=== PATIENT | female | born 1980 | race Caucasian/White ===

== ENCOUNTER 2024-08-07 15:34 | Outpatient (AMB) | payer BC, SELFPAY ==
--- OUTSIDE RECORDS SUMMARY | 2024-08-07 15:37 | XMS_ITS | Encounter Summary ---
Author Organization [facility] Address [address] [place] [address] Care Team Providers Care Social Work Faculty Member Name Role Phone Jg Hernandez MD Primary Care Provider Unavail able Juan Vázquez MD Primary Care Provider Unava ilable Stu Freitas DO Primary Care Provider Unavaila ble Encounter Details Date Type Department Care Team Description 02/28/2013 Release of Information Medical Records [address] [place] [address] Abstract, Provider Social History Tobacco Use Types Packs/Day Years Used Date Smoking Tobacco: Never Alcohol Use Standard Drinks/Week Comments Yes 0 (1 standard drink = 0.6 oz pur e alcohol) rare Sex Assigned at Date Recorded Not on file Job Start Date Occupation Industry Not on file Not on file Not on file documented as of this encounter Plan of Treatment Not on file documented as of this encounter Visit Diagnoses Not on filedocumented in this encounter Care Teams Social Work Faculty Member Relationship Specialty Start Date End Date Jg Hernandez MD PCP - General Internal Medicine 02/10/13 07/12/19 Juan Vázquez MD PCP - General Internal Medicine 07/13/19 06/22/21 Stu Freitas DO PCP - General Internal Medicine 06/23/21 documented as of this encounter
--- OUTSIDE RECORDS SUMMARY | 2024-08-07 15:37 | XMS_ITS | Encounter Summary ---
Author Organization [facility] Address [address] [place] [address] Care Team Providers Care Transitional Living Specialist Name Role Phone Stu Freitas DO Primary Care Provider Tka ble Encounter Details Date Type Department Care Team Description 08/04/2023 Account Contact Associate Report Medical Records [address] [place] [address] Denae Turner MD Social History Tobacco Use Types Packs/Day Years Used Date Smoking Tobacco: Never Smokeless Tobacco: Never Alcohol Use Standard Drinks/Week Comments Yes 0 (1 standard drink = 0.6 oz pur e alcohol) occasionally. Sex Assigned at Date Recorded Not on file Job Start Date Occupation Industry Not on file Not on file Not on file documented as of this encounter Plan of Treatment Not on file documented as of this encounter Visit Diagnoses Not on filedocumented in this encounter Care Teams Transitional Living Specialist Relationship Specialty Start Date End Date Stu Freitas DO PCP - General Internal Medicine 06/23/21 documented as of this encounter
--- OUTSIDE RECORDS SUMMARY | 2024-08-07 15:37 | XMS_ITS | Clinical Summary ---
Author Organization [facility] Address [address] [place] [address] Care Team Providers Care Family Reunification Specialist Name Role Phone Stu Freitas DO Primary Care Provider Unavaila ble Allergies No known active allergies Medications Medication Sig Dispensed Refills Start Date End Date Status Multiple Vitamins-Minerals (MULTIVITAL) TABS Take by mouth. 0 02/24/2013 Act david [place]-3 Fatty Acids (FISH OIL) 1000 MG CAPS Take by mouth. 90 Cap 0 02/24/2013 Active betamethasone valerate (VALISONE) 0.1 % lotion 60 mL 0 02/20/2017 Active Mobile Tar Extract (NEUTROGENA T/GEL) 4 % Shampoo Apply topically. 0 02/20/2017 Active Vit-Fe Fumarate-FA ( VITAMINS OR) Take by mouth. 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 Currently engaged with infertility for IVF Chronic idiopathic urticaria 04/08/2020 Sebopsoriasis 02/20/2017 Hyperlipidemia 03/11/2013 Skin moles 02/24/2013 Overview: [place] Derm IMO update Class 3 severe obesity due t o excess calories with body mass index (BMI) of 40.0 to 44.9 in adult 02/24/2013 Resolved Problems Problem Noted Date Resolved Date Urticaria 04/08/2020 04/08/2020 Immunizations Name Administration Dates Next Due COVID-19 (KRIS Strong) PT REPORTED 09/29/2020 HPV (Gardasil) 03/17/2007,11/08/2006,09/10/2006 Influenza (> 6 Months) 03/10/2017,2015,03/21/2015,2012 Influenza (>6 Months) Split Preservative Free 03/10/2017,03/18/2016,03/21/2015 Influenza Flu (PT Reported) 04/01/2023, Influenza Vaccine-preservati ve Free-quadrivalent 4 Years 03/29/2019 Influenza Vaccine-quadrivale nt 4 Years Plus 03/11/2021,03/15/2020,04/05/2018 Influenza vaccine high dose age 65 and over 03/22/2014,02/24/2013 Tdap 01/05/2019,09/24/2010 Family History Medical History Relation Name Comments No Known Problems Father Thyroid Disorder Maternal Grandmother Hypercholesterolemia Mother Multiple Sclerosis Other great aun t Cancer of the Prostate Paternal Grandfather Multiple Sclerosis Sister CA Breast Negative Hx CAD Negative Hx Diabetes Negative Hx Hypertension Negative Hx Relation Name Status Comments Father Alive Maternal Grandfather Maternal Grandmother Alive Mother Alive Other Paternal Grandfather Paternal Grandmother Sister Social History Tobacco Use Types Packs/Day Years Used Date Smoking Tobacco: Never Smokeless Tobacco: Never Tobacco Cessation:Counseling Given: Not Answered Alcohol Use Standard Drinks/Week Comments Yes 0 (1 standard drink = 0.6 oz pur e alcohol) occasionally. Sex Assigned at Date Recorded Not on file Job Start Date Occupation Industry Not on file Not on file Not on file Last Filed Vital Signs Vital Sign Reading Time Taken Comments Blood Pressure 112/80 06/09/2023 4:24 PM EST Pulse 90 06/09/2023 4:24 PM EST Temperature 36.9 ??C (98.5 ??F) 06/09/2023 4:24 PM ES T Respiratory Rate 18 07/19/2019 3:50 PM EST Oxygen Saturation - - Inhaled Oxygen Concentration - - Weight 105.2 kg (232 lb) 06/09/2023 4:24 PM EST Height 157.5 cm (5' 2 ) 06/09/2023 4:24 PM EST Body Mass Index 42.43 06/09/2023 4:24 PM EST Plan of Treatment Health Maintenance Due Date Last Done Comments Covid-19 Vaccine (2 - 2022-2 4 season) 2024 09/29/2020 INFLUENZA (#1) 2024 04/01/2023, 03/22, 03/11/2021, Additional history exists MAMMOGRAM 03/10/2024 03/10/2023 (Exte rnal Completion), 12/30/2021, 01/04/2018 BMI CHECK/ADVISE 06/21/2024 06/09/2023, 08/2021, 09/15/2021, Additional history exists BASELINE HEALTH EXAM 40-64 06/09/202506/09, 06/09/2023, 09/15/2021, Additional history exists CERVICAL CANCER SCREENING 03/10/20262022 (External Completion), 12/19/2012 (External Completion of test per patient (Patient reports normal results)) CHOLESTEROL SCREENING 06/09/2028 06/09/2023 , 09/15/2021, 07/19/2019, Additional history exists DTAP/TDAP/TD (3 - Td or Tdap) 01/05/2029 01/05/2019, 09/24/2010 PNEUMOCOCCAL VACCINE FOR HIG H RISK PATIENTS (#1) 2046 Care Teams Family Reunification Specialist Relationship Specialty Start Date End Date Stu Freitas DO PCP - General Internal Medicine 06/23/21
--- OUTSIDE RECORDS SUMMARY | 2024-08-07 15:37 | XMS_ITS | Patient Health Record ---
Author Organization [facility] Address [address] [place] [address] Care Team Providers Care Wastewater Process Engineer Name Role Phone Shanita CANDELARIO MD, CARLOS Primary Care Provider Unavailab Eunice Villarreal Unavailable [phone] Allergies No Known Allergies Results Component Value Reference Range Notes [id number] IGP No Culture 30 Plus Reviewed date:02/23/2024 01:38:28 PM Interpretation: Performing Lab:[facility], [address], [place], Phone - [phone], Director - [facility] Notes/Report: Clinical Information:[id number] LMP / Prev Treat...[id number] Dates / Results....01/19/22 NIL, Neg HPV No. of containers..01 ThinPrep Vial DIAGNOSIS: NEGATIVE FOR INTRAEPITHELIAL LESION OR MALIGNANCY. THIS SPECIMEN WAS RESCREENED PART OF OUR WIRE WINDER PROGRAM. Specimen adequacy: Satisfactory for evaluation. Endocervical and/or squamous metaplastic cells (endocervical component) are present. Clinician provided ICD10: Z0 1.419 Performed by: Shannen teran, Junior Systems Administrator (ASCP) QC reviewed by: Edwin dc, Junior Systems Administrator (ASCP) . . Note: The Pap smear is a screening test designed to aid in the detection of premalignant and malignant conditions of the uterine cervix. It is not a diagnostic procedure and should not be used as the sole means of detecting cervical cancer. Both false-positive and false-negative reports do occur. . Test Methodology: This liquid based ThinPrep(R) pap test was screened with the use of an image guided system. HPV Aptima Negative Negative This nucleic acid amplification test detects fourteen high-risk HPV types (16,18,31,33,35,39,45,51,52,56,58 ,59,66,68) without differentiation. HPV Genotype Reflex Criteria not met, HPV Genotype not performed. Urinalysis Reviewed date:02/16/2024 03:32:26 PM Interpretation: Performing Lab: Notes/Report: PH 5.0 PROTEIN Neg GLUCOSE Neg BLOOD Neg PDF Report Reviewed date:02/23/2024 01:38:11 PM Interpretation: Performing Lab:[facility] [place], [address], [address], [place], Phone - [phone], Director - [facility] Notes/Report: Clinical Information:[id number] LMP / Prev Treat...[id number] Dates / Results....01/19/22 NIL, Neg HPV No. of containers..01 ThinPrep Vial Reason For Referral No Information Medications Medication SIG (Take, Route, Frequency, Duration) Notes Start Date End Date Status CoQ-10 100 MG as directed Orally Unknown Dose Active Multivitamin-Ultra Active DHEA 25 MG as directed Orally Unknown Dose Active Immunizations Vaccine Route Administration Date Status Comme nts Influenza, live, intranasal Intramuscular 08/12/2011 Pendi ng Tdap Intramuscular 08/12/2011 Pending Tdap Unknown 12/27/2012 Pending Social History Tobacco Use: Social History Observation Description Date Details (start date - stop date) Never Smoker NA - NA Sexual History Question Answer Notes Had sex in the past 12 months (vaginal, oral, or anal)? Yes with Men only Prevention strategies discussed: Other AUDIT-C (Standard) Question Answer Notes Did you have a drink contain ing alcohol in the past year? Yes How often did you have six o r more drinks on one occasion in the past year? Never (0 point) How many drinks did you have on a typical day when you were drinking in the past year? 1 or 2 drinks (0 point) How often did you have a dri nk containing alcohol in the past year? 2 to 4 times a month (2 points) Points 2 Interpretation Negative Tobacco Control (Standard) Question Answer Notes Tobacco use: Nonsmoker Section Notes: Problems Problem Type SNOMED Code ICD Code Onset Dates Problem Status W/U Status Risk Notes Problem Morbid obesity (disorder) (200090286) Morbid (severe) obesity due to excess calories (E66.01) Active confirmed Problem Amenorrhea (33305411) Amenorrhea, unspecified (N91.2) Active confirmed Problem Irregular Menstruation (59595474) Other specified irregular menstruation (N92.5) Active confirmed Problem Abnormal vaginal bleeding (517282157) Other specified abnormal uterine and vaginal bleeding (N93.8) Active confirmed Problem Female infertility associated with anovulation (821661371) Female infertility associated with anovulation (N97.0) Active confirmed Problem Female infertility (5794754) Female infertility, unspecified (N97.9) Active confirmed Problem Obesity (387795464) Obesity, unspecified (278.00) Active confirmed Major Vital Signs Temperature 97.7 degrees Fahrenheit 02/16/2024 Blood pressure diastolic 84 mm Hg 02/16/2024 Height 62 in 02/16/2024 Blood pressure systolic 128 mm Hg 02/16/2024 Weight 240 lbs 02/16/2024 BMI 43.89 kg/m2 02/16/2024 Encounters Encounter Location Date Provider Diagnosis [address] [address] 02/16/2024 Eunice Stone Encounter for gynecological examination (general) (routine) without abnormal findings Z01.419 ; Encounter for screening mammogram for malignant neoplasm of breast Z12.31 and Female infertility, unspecified N97.9 Assessments Encounter Date Diagnosis (ICD Code) Assessment Notes Treatment Notes Treatment Clinical Notes Section Notes 02/16/2024 Encounter for gynecological examination (general) (routine) without abnormal findings (ICD-10 - Z01.419) PAP TEST WITH HPV TYPING WAS OBTAINED. 02/16/2024 Encounter for screening mammogram for malignant neoplasm of breast (ICD-10 - Z12.31) REGULAR MAMMOGRAMS AND SBE'S WERE RECOMMENDED. 02/16/2024 Female infertility, unspecified (ICD-10 - N97.9) CONTINUE CARE WITH [facility]. Plan Of Treatment Pending Test Test Name Order Date Test, Urine 02/12/2023 Test, Urine 06/17/2023 DIAGNOSTIC MAMMOGRAM, BILATERAL 12/24/19 18 COMPLETE BLOOD COUNT 06/17/2023 HCG PLUS BETA 06/17/2023 THIN PREP,HPV,ALISIA IF HPV+/CYT-,CT/GC(>2 9YR)(SCRN) 01/03/2018 MM Digital Mammo Screening 01/28/2022 MM Digital Mammo Screening 02/12/2023 MM Digital Mammo Screening 02/16/2024 Left Breast Ultrasound 12/23/2017 Next Appt Details Provider Name:Eunice walter, 02/21/2025 03:00:00 PM, [address], [address], [place], [address], Insurance Providers Payer Name Payer Address Payer Phone Subscriber Number Group Number Insured Name Patient Relationship to Insured Coverage Start Date Coverage End Date [employer] [place] [address] [place] [address] [phone] [id number] ESTIVEN PERRY Self - patient is the insured Medical (General) History Medical History History ICD Code Other obesity E66.8 Mastodynia N64.4 Other specified irregular menstruation N 92.5 Other specified abnormal uterine and vag inal bleeding N93.8 Inflammatory disease of cervix uteri N72 Other acute postprocedural pain G89.18 Morbid (severe) obesity due to excess ca lories E66.01 Female infertility associated with anovu lation N97.0 Other acute postprocedural pain G89.18 Surgical History Surgery Date(Month/Year)
--- OUTSIDE RECORDS SUMMARY | 2024-08-07 15:37 | XMS_ITS ---
Author Organization [facility] Address [address] [place] [address] Care Team Providers Care Rod Buster Name Role Phone Shanita CANDELARIO MD, CARLOS Primary Care Provider Unavailab Eunice Villarreal Unavailable [phone] Allergies No Known Allergies Results Component Value Reference Range Notes Urinalysis Reviewed date:02/16/2024 03:32:26 PM Interpretation: Performing Lab: Notes/Report: PH 5.0 PROTEIN Neg GLUCOSE Neg BLOOD Neg [id number] IGP No Culture 30 Plus Reviewed date:02/23/2024 01:38:28 PM Interpretation: Performing Lab:[facility], [address], [address], [place], Phone - [phone], Director - [facility] Notes/Report: Clinical Information:[id number] LMP / Prev Treat...FOE=[id number] Dates / Results....01/19/22 NIL, Neg HPV No. of containers..01 ThinPrep Vial DIAGNOSIS: NEGATIVE FOR INTRAEPITHELIAL LESION OR MALIGNANCY. THIS SPECIMEN WAS RESCREENED PART OF OUR FAMILY SERVICE CASEWORKER PROGRAM. Specimen adequacy: Satisfactory for evaluation. Endocervical and/or squamous metaplastic cells (endocervical component) are present. Clinician provided ICD10: Z0 1.419 Performed by: Shannen teran, Dry Starch Operator (ASCP) QC reviewed by: Edwin dc, Dry Starch Operator (ASCP) . . Note: The Pap smear [...] Criteria not met, HPV Genotype not performed. PDF Report Reviewed date:02/23/2024 01:38:11 PM Interpretation: Performing Lab:[facility], [address], [address], [place], Phone - [phone], Director - [facility] Notes/Report: Clinical Information:[id number] LMP / Prev Treat...MLF=[id number] Dates / Results....01/19/22 NIL, Neg HPV No. of containers..01 ThinPrep Vial REASON FOR VISIT Annual X RAY NURSE Physical, Annual X RAY NURSE Physical 40-49 Medications Medication SIG (Take, Route, Frequency, Duration) Notes Start Date End Date Status Multivitamin-Ultra Active DHEA 25 MG as directed Orally Unknown Dose Active CoQ-10 100 MG as directed Orally Unknown Dose Active Social History Tobacco Use: Social History Observation [...] (Standard) Question Answer Notes Tobacco use: Nonsmoker Problems Problem Type SNOMED Code ICD Code Onset Dates Problem Status W/U Status Risk Notes Problem Female infertility (1684290) Female infertility, unspecified (N97.9) Active confirmed Vital Signs Temperature 97.7 degrees Fahrenheit 02/16/20 24 Blood pressure systolic 128 mm Hg 02/16/20 24 Blood pressure diastolic 84 mm Hg 024 Height 62 in 02/16/2024 Weight 240 lbs 02/16/2024 BMI 43.89 kg/m2 02/16/2024 Encounters Encounter Location Date Provider Diagnosis Total [facility] [address] [place] [address] 02/16/2024 Eunice Stone Encounter for gynecological examination [...] unspecified (ICD-10 - N97.9) CONTINUE CARE WITH [facility]. Plan Of Treatment Treatment Notes Assessment Notes Encounter for gynecological examination (general) (routine) without abnormal findings PAP TEST WITH HPV TYPING WAS OBTAINED. Encounter for screening mamm ogram for malignant neoplasm of breast REGULAR MAMMOGRAMS AND SBE'S WERE RECOMMENDED. Female infertility, unspecified CONTINUE CARE WITH [facility]. Pending Test Test Name Order Date MM Digital Mammo Screening 02/16/2024 Next Appt Details Follow Up: 1 Year, Reason: Provider Name:Eunice walter, 02/21/2025 03:00:00 PM, [address], [address], [place], [address], Progress Notes * ESTIVEN PERRYDOB:1980 (43 yo F)Acc No.[id number]:02/16/2024 PROGRESS NOTES Patient:?ESTIVEN PERRY Appointment Provider:?Eunice walter M.D. :1980???Age:43 Y???Sex:Female D ate:02/16/2024 Address:[address] [place], [place] [id number] Pcp:CARLOS CANDELARIO MD Subjective: * Chief Complaints: * ???Annual X RAY NURSE PhysicalAnnual X RAY NURSE Physical 40-49 * HPI: ???New/Follow-up Patient Consult:? ADELFO WAS SEEING [facility] [place] [facility] AND WAS AN IVF PATIENT WHEN THIS WAS TURNED OVER TO [facility].? SHE HAD TO REPEAT MOST OF HER INFERTILITY WORK UP.? SHE IS NOW SEEING DR SONU BANSAL OF [facility] AND TREATMENTS HAVE BEEN STARTED. HER LAST MAMMOGRAM DONE IN JAN 2023 SHOWED BREASTS ARE NOT DENSE AND WAS NORMAL. HER LAST PAP TEST IN 2021 WAS NEGATIVE AND HPV NEGATIVE. PFIZER X 3. ???Annual:? Patient presents for annual exam, ages 40-49. ?General Health Maintenance:?Current breast complaints:?no breast pain, mass, discharge, or skin changes ?Urinary problems:?patient reports no urinary health problems or bowel health problems ?Calcium intake:?takes adequate calcium via diet and supplementation ?Significant X RAY NURSE problems:?no significant electrophysiology technologist symptoms or problems * ROS:?general:?no?chest pain.?no?palpitations.?no?headache.?no?cough.?no?shortness of breath.?no?fever.?no?unexplained weight loss.?no?nausea/vomiting.?no?change in bowel movements.?no blood in stool.?no?genitourinary complaints.?no?skin complaints.? * Medical History:? * Chief Electrician History:?/ Para?0/0.?Sexual activity?currently sexually active.?Last Pap Smear:?01/28/22 NIL, NEG HPV, 01/06/19 NIL, Neg HPV, 01/03/18 No Interpretation Possible, NEG HRHPV, 07/2015 , neg, NEG HRHPV.?Mammogram:?02/18/23 < 50% density, 12/30/21 Lanette Medina, 01/04/18 Baseline, < 50% density.?LMP and menses?01/30/24.? Control:?None, Trying for .? * OB History:?Total pregnancies?0.? * Surgical History:?Denies Pas t Surgical History * Hospitalization/Major Diagno stic Procedure:?Denies Past Hospitalization * Family History:?Mother: arelis xie, well.?Father: alive, well.? Sibling(s): 4 sister(s) MS Family History: prostate cancer. * Social History:?Tobacco Use:?Tobacco Control (Standard)?Tobacco use:?Nonsmoker ???Sexual History:?Sexual History?Had sex in the past 12 months (vaginal, oral, or anal)??Yes ?with?Men only ?Prevention strategies discussed:?Other ?Details of Sexual History?Are you sexually active??Yes ???Drugs/Alcohol:?Drugs?Have you used drugs other than those for medical reasons in the past 12 months??No ???Miscellaneous:?Children: no. ?Domestic violence: no. ?Exercise: yes, Cardio. ?Home smoke detector use: yes. ?Living with: spouse. ?Marital status: . ?Natural support system: yes. 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 ?Sexual abuse: no. ?Sexually active: yes. ?Verbal abuse: no. ???Drug/Alcohol:?AUDIT-C (Standard)?Did you have a drink containing alcohol in the past year??Yes ?How often did you have six or more drinks on one occasion in the past year??Never (0 point) ?How many drinks did you have on a typical day when you were drinking in the past year??1 or 2 drinks (0 point) ?How often did you have a drink containing alcohol in the past year??2 to 4 times a month (2 points) ?Points?2 ?Interpretation?Negative * Medications:?TakingDHEA 25 M G Tablet as directed Orally , Notes to Pharmacist: Unknown DoseCoQ-10 100 MG Capsule as directed Orally , Notes to Pharmacist: Unknown DosePrenatal Multivitamin-Ultra Taking DHEA 25 MG Tablet as directed Orally , Notes to Pharmacist: Unknown DoseTaking CoQ-10 100 MG Capsule as directed Orally , Notes to Pharmacist: Unknown DoseTaking Multivitamin-Ultra Discontinuediron 1 tab Oral Apri 0.15-30 MG-MCG Tablet TAKE 1 TABLET BY MOUTH EVERY DAY (TAKE 21 DAY ACTIVE TABLETS THEN SKIP PLACEBOS & START NEXT PACK) Oral Aygestin 5 MG Tablet 1 tablet Orally q 4hrs-d1, v8ynp-s2, i1jeq-v6, then twice a day for 14 days Medication List reviewed and reconciled with the patientDiscontinued iron 1 tab Oral Discontinued Apri 0.15-30 MG-MCG Tablet TAKE 1 TABLET BY MOUTH EVERY DAY (TAKE 21 DAY ACTIVE TABLETS THEN SKIP PLACEBOS & START NEXT PACK) Oral Discontinued Aygestin 5 MG Tablet 1 tablet Orally q 4hrs-d1, n2maa-i9, g9ghg-n0, then twice a day for 14 days Medication List reviewed and reconciled with the patient * Allergies:?N.K.D.A.no[Allerg ies Verified] Objective: * Vitals:?Ht: 62 in, Wt:240lbs , BMI:43.89Index, BP:128/84mm Hg, Temp:97.7F. * Examination: ???General Exam: ?CONSTITUTIONAL:?NECK/THYROID:?RESPIRATORY:?Auscultation: clear to auscultation bilaterally, Respiratory Effort: normal.?CARDIOVASCULAR:?Auscultation: regular rate and rhythm.?BREAST, Right:?BREAST, Left:?GASTROINTESTINAL:?MUSCULOSKELETAL:?SKIN:?NEURO/PSYCH:?Genitourinary: ?EXTERNAL GENITALIA:?VAGINA:?BLADDER:?URETHRA:?CERVIX:?UTERUS:?ADNEXA:?ANUS AND PERINEUM:? Assessment: * Assessment: 1.?Encounter for gynecologic al examination (general) (routine) without abnormal findings - Z01.419???2.?Encounter for screening mammogram for malignant neoplasm of breast - Z12.31???3.?Female infertility, unspecified - N97.9??? Plan: * Treatment: ?LAB: Urinalysis (Collection Date & Time - 02/16/2024)* ? Value Reference Range ?PH 5.0 * ?PROTEIN Neg * ?GLUCOSE Neg * ?BLOOD Neg * DASIM Ware 02/16/2024 03:28:30 PM EDT > Notes: PAP TEST WITH HPV TYPING WAS OBTAINED.??2.?Encounter for screening mammogram for malignant neoplasm of breast?Imaging: MM Digital Mammo Screening Notes: REGULAR MAMMOGRAMS AND SBE'S WERE RECOMMENDED.??3.?Female infertility, unspecified? Notes: CONTINUE CARE WITH [facility].?? * Procedure Codes:? * Preventive Medicine:? ??YOUR PREVENTIVE WELLNESS PLAN:?Osteoporosis prevention?Calcium, D, strength training.?Breast Cancer Screening (Mammogram):?annually.?Cervical Cancer Screening (Pap Smear):?q 3 years with HPV screen.?Colorectal Cancer Screening:?q 10 years.? * Follow Up:?1 Year * Images: Billing Information: * Visit Code:? 30377 Preventive Care New Pt. Age 40-64. 43266 Preventive Care Est Pt. Age 40-64. * Procedure Codes:? * Sign off status: Completed true * Appointment Provider:?Eunice Stone M.D. Date:?02/16/2024 Generated for Yosef marcos/Lane/eTnimoitting on:?08/07/2024 03:37 PM EST History and Physical Notes * HPI (History of Present Illness) Category Sub-Category Detail Notes Category Not es New/Follow-up Patient Consult PAT WAS SEEING [facility] [facility] [place] AND WAS AN IVF PATIENT WHEN THIS WAS TURNED OVER TO [facility]. SHE HAD TO REPEAT MOST OF HER INFERTILITY WORK UP. SHE IS NOW SEEING DR SONU [facility]ANS[facility] OF [facility] AND TREATMENTS HAVE BEEN STARTED. HER LAST MAMMOGRAM DONE IN JAN 2023 SHOWED BREASTS ARE NOT DENSE AND WAS NORMAL. HER LAST PAP TEST IN 2021 WAS NEGATIVE AND HPV NEGATIVE. PFIZER X 3. Annual General Health Maintenance: Current breast complaints:: no breast pain, mass, discharge, or skin changes Urinary problems:: patient r eports no urinary health problems or bowel health problems Calcium intake:: takes adequ ate calcium via diet and supplementation Significant X RAY NURSE problems:: n o significant electrophysiology technologist symptoms or problems Examination Category Sub-Category Detail Notes Category Not es General Exam CONSTITUTIONAL: General Appearan ce:: alert, in no acute distress, normal, well nourished NECK/THYROID: Thyroid:: normal size and shape Inspection/Palpation:: normal RESPIRATORY: Auscultation: clear to auscultation bilaterally, Respiratory Effort: normal CARDIOVASCULAR: Auscultation: regula r rate and rhythm GASTROINTESTINAL: Hernias:: no hernias present, no inguinal adenopathy Liver and Spleen:: normal Abdomen:: no masses, nontender, nondiste nded MUSCULOSKELETAL: Inspection/Palpation:: no clubb ing, cyanosis, or edema SKIN: Skin:: normal NEURO/PSYCH: Mood/Affect:: normal Orientation:: time , place, person BREAST, Right: Inspection/Palpation :: no discharge, no masses present, no nipple retraction, no skin changes, no skin dimpling, no tenderness, no lymphadenopathy, no axillary mass, no axillary tenderness BREAST, Left: Inspection/Palpation :: no discharge, no masses present, no nipple retraction, no skin changes, no skin dimpling, no tenderness, no lymphadenopathy, no axillary mass, no axillary tenderness Genitourinary EXTERNAL GENITALIA: External Genitalia:: nor mal, no lesions VAGINA: Vagina:: normal appearance, no a bnormal discharge, no lesions BLADDER: Bladder:: no mass, nontender URETHRA: Urethra:: no erythema or lesions present CERVIX: Cervix:: no lesions, nontender UTERUS: Uterus:: nontender, normal conto ur, normal mobility, normal size ADNEXA: Adnexa:: no masses, no tendernes s ANUS AND PERINEUM: Anus/Perineum:: visually norm al
--- OUTSIDE RECORDS SUMMARY | 2024-08-07 15:37 | XMS_ITS | Encounter Summary ---
Author Organization [facility] Address [address] [place] [address] Care Team Providers Care Hospice Chaplain Name Role Phone Stu Freitas DO Primary Care Provider Alisa grullon Encounter Details Date Type Department Care Team Description 12/25/2022 Pt. Referral Request [facility] [address] [place] [address] Md Linda Social History Tobacco Use Types Packs/Day Years [...] on filedocumented in this encounter Care Teams Hospice Chaplain Relationship Specialty Start Date End Date Stu Freitas DO PCP - General Internal Medicine 06/23/21 documented as of this encounter
--- OUTSIDE RECORDS SUMMARY | 2024-08-07 15:37 | XMS_ITS | Encounter Summary ---
Author Organization [facility] Address [address] [place] [address] Care Team Providers Care Truck Unloader Name Role Phone Jg Hernandez MD Primary Care Provider Unavail able Juan Vázquez MD Primary Care Provider Unava ilable Stu Freitas DO Primary Care Provider Unavaila ble Encounter Details Date Type Department Care Team Description 02/10/2017 Manufacturing Engineer Assembly Report Medical Records [address] [place] [address] Darío Sparks MD Social History Tobacco Use Types Packs/Day [...] on filedocumented in this encounter Care Teams Truck Unloader Relationship Specialty Start Date End Date Jg Hernandez MD PCP - General Internal Medicine 02/10/13 07/12/19 Juan Vázquez MD PCP - General Internal Medicine 07/13/19 06/22/21 Stu Freitas DO PCP - General Internal Medicine 06/23/21 documented as of this encounter
--- OUTSIDE RECORDS SUMMARY | 2024-08-07 15:37 | XMS_ITS | Encounter Summary ---
Author Organization [facility] Address [address] [place] [address] Care Team Providers Care Electronic Component Processor Name Role Phone Juan Vázquez MD Primary Care Provider Unava ilStu Saucedo DO Primary Care Provider Tka ble Encounter Details Date Type Department Care Team Description 07/21/2019 Release of Information Medical Records [address] [place] [id number] Abstract, Provider Social History Tobacco Use Types [...] on filedocumented in this encounter Care Teams Electronic Component Processor Relationship Specialty Start Date End Date Juan Vázquez MD PCP - General Internal Medicine 07/13/19 06/22/21 Stu Freitas DO PCP - General Internal Medicine 06/23/21 documented as of this encounter
--- OUTSIDE RECORDS SUMMARY | 2024-08-07 15:37 | XMS_ITS ---
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 Name Role Phone Shanita CANDELARIO MD, CARLOS Primary Care Provider Eunice Crawley Unavailable [phone] Allergies No Known Allergies REASON FOR VISIT heavy bleeding over 1 1/2 wks with clots Medications Medication SIG (Take, Route, Frequency, Duration) Notes Start Date End Date Status Apri 0.15-30 MG-MCG TAKE 1 TABLET BY BRENT TH EVERY DAY (TAKE 21 DAY ACTIVE TABLETS THEN SKIP PLACEBOS & START NEXT PACK) Oral for 21 Active Multivitamin-Ultra Active DHEA 25 MG as directed Orally Unknown Dose Active CoQ-10 100 MG as directed Orally Unknown Dose Active Aygestin 5 MG 1 tablet Orally q 4hrs-d1, n6eud-s1, h0muq-u6, then twice a day for 14 days for 30 days 06/17/2023 Active iron 1 tab Oral for 14 days Active Social History Tobacco Use: Social History Observation Description Date Details (start date - stop date) Never Smoker NA - NA Tobacco Use/Smoking Question Answer Notes Are you a nonsmoker Alcohol Screen (Audit-C) Question Answer Notes Did you have a drink contain ing alcohol in the past year? Yes How often did you have a dri nk containing alcohol in the past year? 2 to 4 times a month (2 points) How many drinks did you have on a typical day when you were drinking in the past year? 1 or 2 drinks (0 point) Points 2 Interpretation Negative Sexual History Question Answer Notes Had sex in the past 12 months (vaginal, oral, or anal)? Yes with Men only Prevention strategies discussed: Other Section Notes: Vital Signs Height 62 in 06/17/2023 Weight 236 lbs 06/17/2023 BMI 43.16 kg/m2 06/17/2023 Blood pressure systolic 124 mm Hg 06/17/20 Blood pressure diastolic 86 mm Hg 023 Temperature 97.1 degrees Fahrenheit 06/17/20 BP RETAKEN 06/17/23 2:25PM: 130/82 Encounters Encounter Location Date Provider Diagnosis [facility] [address] [place] [address] 06/17/2023 Eunice Richardsonva Other specified abnormal uterine and vaginal bleeding N93.8 Assessments Encounter Date Diagnosis (ICD Code) Assessment Notes Treatment Notes Treatment Clinical Notes Section Notes 06/17/2023 Other specified abnormal uterine and vaginal bleeding (ICD-10 - N93.8) DISCUSSED COMMON CAUSES OF AUB. RECOMMENDED SHE GET IN TOUCH WITH DR GARZON WHO IS MANAGING HER INFERTILITY EVALUATION AND TX. IF HER BLEEDING DOES NOT SUBSIDE AND SHE STARTS BLEEDING HEAVILY AGAIN AND SHE IS NOT ABLE TO CONTACT DR GARZON, CONSIDER AYGESTIN TAPER. DETAILED INSTRUCTIONS AND RX WERE GIVEN. DETAILED INSTRUCTIONS AND RX WERE GIVEN. Plan Of Treatment Medication Medication Name Sig Start Date Stop Date Notes Aygestin 5 MG 1 tablet Orally q 4h rs-d1, y6ovt-t4, p8nnb-w3, then twice a day for 14 days for 30 days 06/17/2023 Treatment Notes Assessment Notes Other specified abnormal grover rine and vaginal bleeding DISCUSSED COMMON CAUSES OF AUB. RECOMMENDED SHE GET IN TOUCH WITH DR GARZON WHO IS MANAGING HER INFERTILITY EVALUATION AND TX. IF HER BLEEDING DOES NOT SUBSIDE AND SHE STARTS BLEEDING HEAVILY AGAIN AND SHE IS NOT ABLE TO CONTACT DR GARZON, CONSIDER AYGESTIN TAPER. DETAILED INSTRUCTIONS AND RX WERE GIVEN. DETAILED INSTRUCTIONS AND RX WERE GIVEN. Pending Test Test Name Order Date Test, Urine 06/17/2023 COMPLETE BLOOD COUNT 06/17/2023 HCG PLUS BETA 06/17/2023 Next Appt Details Follow Up: 2 Weeks, Reason: Provider Name:Eunice walter, 02/21/2025 03:00:00 PM, [address], [address], [place], [address], Progress Notes * VALDEZ PERRY:1980 (42 yo F)Acc No.[id number]:06/17/2023 PROGRESS NOTES Patient:ESTIVEN GUPTA Appointment Provider:?Eunice walter M.D. :1980???Age:42 Y???Sex:Female D ate:06/17/2023 Address:[address] [place] [address], [place] [address], , [facility] Pcp:OLY RIVERS, DO Subjective: * Chief Complaints: * ???Heavy bleeding over 1 1/2 wks with clots * HPI: ???New/Follow-up Patient Consult:? ADELFO HAS BEEN SEEING [facility]. IVF WAS STARTED IN MAR 2023. SHE DEVELOPED ONLY ONE EGG AND THUS EGG RETRIVAL WAS CANCELLED. SHE HAD IUI INSTEAD ON 04/03/23. SHE DID NOT GET AND HAD A NORMAL PERIOD ON 04/15/23. SHE WAS THEN PLACED ON APRI IN MAR. SHE HAD NORMAL PERIOD IN APR 2023. SHE HAD LIGHT BLEEDING WHILE ON PLACEBO ON 06/03/23 TO 06/09/23. SHE THEN HAD HEAVY BLEEDING FROM 06/11/23 UP TO THE PRESENT TIME. UCG IS NEGATIVE. SHE HAD BEEN PASSING CLOTS. ?ADELFO HAS NO HX OF BLEEDING OR CLOTTING DISORDERS. SHE CONTINUES TO BE FOLLOWED BY INFERTILITY MD AT [facility] (DR GARZON)BUT THEY HAVE CLOSED THE SECTION AND ARE NOW BEING COMBINED WITH [place]F [place]. SHE WILL TRY TO REACH OUT TO DR GARZON. * ROS:?general:?no?chest pain.?no?palpitations.?no?headache.?no?cough.?no?shortness of breath.?no?fever.?no?unexplained weight loss.?no?nausea/vomiting.?no?change in bowel movements.?no blood in stool.?genitourinary complaints?yes,?VAGINAL BLEEDING.?no?skin complaints.? * Medical History:? * Workers Compensation Manager History:?/ Para?0/0.?Sexual activity?currently sexually active.?Last Pap Smear:?01/28/22 NIL, NEG HPV, 01/06/19 NIL, Neg HPV, 01/03/18 No Interpretation Possible, NEG HRHPV, 07/2015 , neg, NEG HRHPV.?Mammogram:?02/18/23 < 50% density, 12/30/21 Lanette [place], 01/04/18 Baseline, < 50% density.?LMP and menses?06/06/23, 10/16/22, Spotting 12/2022 after Medroxyprogesterone.? Control:?none.? * OB History:?Total pregnancies?0.? * Surgical History:?No Surgica l History documented. * Hospitalization/Major Diagno stic Procedure:?Denies Past Hospitalization * Family History:?Mother: arelis e, well.?Father: alive, well.? Sibling(s): 4 sister(s) MS Family History: prostate cancer. * Social History:?Tobacco Use:?Tobacco Use/Smoking?Are you a?nonsmoker ???Sexual History:?Sexual History?Had sex in the past 12 months (vaginal, oral, or anal)??Yes ?with?Men only ?Prevention strategies discussed:?Other ?Details of Sexual History?Are you sexually active??Yes ???Drugs/Alcohol:?Drugs?Have you used drugs other than those for medical reasons in the past 12 months??No ?Alcohol Screen (Audit-C)?Did you have a drink containing alcohol in the past year??Yes ?How often did you have a drink containing alcohol in the past year??2 to 4 times a month (2 points) ?How many drinks did you have on a typical day when you were drinking in the past year??1 or 2 drinks (0 point) ?Points?2 ?Interpretation?Negative ???Miscellaneous:?no Children. ?no Domestic violence. ?Exercise: yes, Cardio. ?Home smoke detector use: yes. ?Living with: significant other. ?Marital status: Engaged. ?Natural support system: yes. 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 ?no Sexual abuse. ?Sexually active: yes. ?no Verbal abuse. * Medications:?Takingiron 1 ta b Oral DHEA 25 MG Tablet as directed Orally , Notes: Unknown DoseCoQ-10 100 MG Capsule as directed Orally , Notes: Unknown DosePrenatal Multivitamin-Ultra Apri 0.15-30 MG-MCG Tablet TAKE 1 TABLET BY MOUTH EVERY DAY (TAKE 21 DAY ACTIVE TABLETS THEN SKIP PLACEBOS & START NEXT PACK) Oral Medication List reviewed and reconciled with the patientTaking iron 1 tab Oral Taking DHEA 25 MG Tablet as directed Orally , Notes: Unknown DoseTaking CoQ-10 100 MG Capsule as directed Orally , Notes: Unknown DoseTaking Multivitamin-Ultra Taking Apri 0.15-30 MG-MCG Tablet TAKE 1 TABLET BY MOUTH EVERY DAY (TAKE 21 DAY ACTIVE TABLETS THEN SKIP PLACEBOS & START NEXT PACK) Oral Medication List reviewed and reconciled with the patient * Allergies:?N.K.D.A.no[Allerg ies Verified] Objective: * Vitals:?Ht: 62 in, Wt:236 lb s, BMI:43.16 Index, BP:124/86 mm Hg, Temp:97.1 F BP RETAKEN 06/17/23 2:25PM: 130/82. * Examination: ???Gynecological: ?EXTERNAL GENITALIA:?Normal female. No lesions, erythema or discharge.?VAGINA:?pink woodson. No discharge or lesions. No cystocele or rectocele.?CERVIX:?No cervical motion tenderness, discharge or lesions, LIGHT BLEEDING PER OS.?UTERUS:? normal size, shape and consistency, normal mobility, nontender.?ADNEXA:?no masses or tenderness bilaterally.? Assessment: * Assessment: 1.?Other specified abnormal uterine and vaginal bleeding - N93.8 (Primary)? Plan: * Treatment: ?LAB: COMPLETE BLOOD COUNT ?LAB: HCG PLUS BETA Notes: DISCUSSED COMMON CAUSES OF AUB. RECOMMENDED SHE GET IN TOUCH WITH DR GARZON WHO IS MANAGING HER INFERTILITY EVALUATION AND TX. IF HER BLEEDING DOES NOT SUBSIDE AND SHE STARTS BLEEDING HEAVILY AGAIN AND SHE IS NOT ABLE TO CONTACT DR GARZON, CONSIDER AYGESTIN TAPER. DETAILED INSTRUCTIONS AND RX WERE GIVEN. DETAILED INSTRUCTIONS AND RX WERE GIVEN.?? * Procedure Codes:? * Follow Up:?2 Weeks * Images: Billing Information: * Visit Code:? * Procedure Codes:? * Sign off status: Completed true * Appointment Provider:?Eunice Stone M.D. Date:?06/17/2023 Generated for Yosef marcos/Lane/eTransmitting on:?08/07/2024 03:36 PM EST History and Physical Notes * HPI (History of Present Illness) Category Sub-Category Detail Notes Category Not es New/Follow-up Patient Consult ADELFO HAS BEEN SEEING [facility]. IVF WAS STARTED IN MAR 2023. SHE DEVELOPED ONLY ONE EGG AND THUS EGG RETRIVAL WAS CANCELLED. SHE HAD IUI INSTEAD ON 04/03/23. SHE DID NOT GET AND HAD A NORMAL PERIOD ON 04/15/23. SHE WAS THEN PLACED ON APRI IN MAR. SHE HAD NORMAL PERIOD IN APR 2023. SHE HAD LIGHT BLEEDING WHILE ON [place] ON 06/03/23 TO 06/09/23. SHE THEN HAD HEAVY BLEEDING FROM 06/11/23 UP TO THE PRESENT TIME. UCG IS NEGATIVE. SHE HAD BEEN PASSING CLOTS. ADELFO HAS NO HX OF BLEEDING OR CLOTTING DISORDERS. SHE CONTINUES TO BE FOLLOWED BY INFERTILITY MD AT [facility] (DR GARZON)BUT THEY HAVE CLOSED THE SECTION AND ARE NOW BEING COMBINED WITH [place]F [place]. SHE WILL TRY TO REACH OUT TO DR GARZON. Examination Category Sub-Category Detail Notes Category Not es Gynecological CERVIX: No cervical antonio on tenderness, discharge or lesions, LIGHT BLEEDING PER OS VAGINA: pink woodson. No disch arge or lesions. No cystocele or rectocele EXTERNAL GENITALIA: Normal female. No le sions, erythema or discharge UTERUS: normal size, shape a nd consistency, normal mobility, nontender ADNEXA: no masses or tendern ess bilaterally
--- OUTSIDE RECORDS SUMMARY | 2024-08-07 15:37 | XMS_ITS ---
Author Organization [facility] Address [address] [place] [id number] Care Team Providers Care Backup Operator Name Role Phone Shanita CANDELARIO MD, CARLOS Primary Care Provider Eunice Crawley Unavailable [phone] Allergies No Known Allergies Results Component Value Reference Range Notes Urinalysis Reviewed date:02/12/2023 03:06:10 PM Interpretation: Performing Lab: Notes/Report: PH 8.0 PROTEIN Neg GLUCOSE Neg BLOOD Neg REASON FOR VISIT Annual ELECTRONIC WARFARE OFFICER Physical, Annual ELECTRONIC WARFARE OFFICER Physical 40-49 Medications Medication SIG (Take, Route, Frequency, Duration) Notes Start Date End Date Status DHEA 25 MG as directed Orally Unknown Dose Active CoQ-10 100 MG as directed Orally Unknown Dose Active Multivitamin-Ultra Active Social History Tobacco Use: Social History [...] only Prevention strategies discussed: Other Section Notes: Problems Problem Type SNOMED Code ICD Code Onset Dates Problem Status W/U Status Risk Notes Problem Amenorrhea (72751528) Amenorrhea, unspecified (N91.2) Active confirmed Problem Female infertility associated with anovulation (189511222) Female infertility associated with anovulation (N97.0) Active confirmed Vital Signs Height 62 in 02/12/2023 Weight 243 lbs 02/12/2023 BMI 44.44 kg/m2 02/12/2023 Blood pressure systolic 130 mm Hg 02/13/20 Blood pressure diastolic 84 mm Hg 023 Temperature 97.7 degrees Fahrenheit 02/13/20 23 Encounters Encounter Location Date Provider Diagnosis [facility] [address] [place] [address] 02/12/2023 Eunice Stone Encounter for gynecological examination (general) (routine) without abnormal findings Z01.419 ; Encounter for screening mammogram for malignant neoplasm of breast Z12.31 and Female infertility associated with anovulation N97.0 Assessments Encounter Date Diagnosis (ICD Code) Assessment Notes Treatment Notes Treatment Clinical Notes Section Notes 02/12/2023 Encounter for gynecological examination (general) (routine) without abnormal findings (ICD-10 - Z01.419) NO PAP TEST, DUE IN 2024. 02/12/2023 Encounter for screening mammogram for malignant neoplasm of breast (ICD-10 - Z12.31) REGULAR MAMMOGRAMS AND SBE'S WERE RECOMMENDED. 02/12/2023 Female infertility associated with anovulation (ICD-10 - N97.0) CONTINUE CARE WITH DR HOWELL. OBTAIN RECORDS FROM HER OFFICE. CONTINUE VITAMINS. Plan Of Treatment Treatment Notes Assessment Notes Encounter for gynecological examination (general) (routine) without abnormal findings NO PAP TEST, DUE IN 2024. Encounter for screening mamm ogram for malignant neoplasm of breast REGULAR MAMMOGRAMS AND SBE'S WERE RECOMMENDED. Female infertility associate d with anovulation CONTINUE CARE WITH DR HOWELL. OBTAIN RECORDS FROM HER OFFICE. CONTINUE VITAMINS. Pending Test Test Name Order Date Test, Urine 02/12/2023 MM Digital Mammo Screening 02/12/2023 Next Appt Details Follow Up: 1 Year, Reason: Provider Name:Eunice walter, 02/21/2025 03:00:00 PM, [address], [place], [address], Progress Notes * VALDEZ LAROSE: 2 (42 yo F)Acc No.[id number]:02/12/2023 PROGRESS NOTES Patient:?ESTIVEN LAROSE Appointment Provider:?Eunice walter M.D. :1980???Age:42 Y???Sex:Female D ate:02/12/2023 Address:[address] [place] [address], [place] [address], , [id number] Pcp:OLY RIVERS, DO Subjective: * Chief Complaints: * ???Annual ELECTRONIC WARFARE OFFICER PhysicalAnnual ELECTRONIC WARFARE OFFICER Physical 40-49 * HPI: ???New/Follow-up Patient Consult:? PAT AND PARTNER ARE GOING TO START IVF TREATMENTS THIS FEB. THEY ARE UNDER THE CARE OF DR GARZON, INFERTILITY SPECIALIST AT [facility] [place] [place]. SHE IS HAPPY WITH CARE. ?PAT AND PARTNER JUST GOT 2 WEEKS AGO. THEY HAVE BEEN TOGETHER FOR YEARS. ?HER LAST MAMMOGRAM DONE IN DECEMBER 2017 SHOWED BREASTS ARE NOT DENSE AND WAS NORMAL. ?HER LAST PAP TEST IN 2021 WAS NEGATIVE AND HPV NEGATIVE. ???Annual:? Patient presents for annual exam, ages 40-49. ?General Health Maintenance:?Current breast complaints:?no breast pain, mass, discharge, or skin changes ?Urinary problems:?patient reports no urinary health problems or bowel health problems ?Calcium intake:?takes adequate calcium via diet and supplementation ?Significant ELECTRONIC WARFARE OFFICER problems:?no significant industrial renderer symptoms or problems * ROS:?general:?no?chest pain.?no?palpitations.?no?headache.?no?cough.?no?shortness of breath.?no?fever.?no?unexplained weight loss.?no?nausea/vomiting.?no?change in bowel movements.?no blood in stool.?no?genitourinary complaints.?no?skin complaints.? * Medical History:? 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 Control:?none.? * OB History:?Total pregnancies?0.? * Surgical History:?Denies [...] ?Sexually active: yes. ?no Verbal abuse. * Medications:?TakingDHEA 25 M G Tablet as directed Orally , Notes: Unknown DoseCoQ-10 100 MG Capsule as directed Orally , Notes: Unknown DosePrenatal Multivitamin- Ultra Medication List reviewed and reconciled with the patientTaking DHEA 25 MG Tablet as directed Orally , Notes: Unknown DoseTaking CoQ-10 100 MG Capsule as directed Orally , Notes: Unknown DoseTaking Multivitamin-Ultra Medication List reviewed and reconciled with the patient * Allergies:?N.K.D.A.no[Allerg ies Verified] Objective: * Vitals:?Ht: 62 in, Wt:243 lb s, BMI:44.44 Index, BP:130/84 mm Hg, Temp:97.7 F. * Examination: ???General Exam: ?CONSTITUTIONAL:?NECK/THYROID:?RESPIRATORY:?Auscultation: clear to auscultation bilaterally, Respiratory Effort: normal.?CARDIOVASCULAR:?Auscultation: regular rate and rhythm.?BREAST, Right:?BREAST, Left:?GASTROINTESTINAL:?MUSCULOSKELETAL:?SKIN:?NEURO/PSYCH:?Genitourinary: ?EXTERNAL GENITALIA:?VAGINA:?BLADDER:?URETHRA:?CERVIX:?UTERUS:?ADNEXA:?ANUS AND PERINEUM:? Assessment: * Assessment: 1.?Encounter for gynecologic al examination (general) (routine) without abnormal findings - Z01.419?2.?Encounter for screening mammogram for malignant neoplasm of breast - Z12.31?3.?Female infertility associated with anovulation - N97.0? Plan: * Treatment: ? Value Reference Range ?PH 8.0 * ?PROTEIN Neg * ?GLUCOSE Neg * ?BLOOD Neg * D.,ASIM 02/12/2023 3:05:54 P M > Notes: NO PAP TEST, DUE IN 2024.??2.?Encounter for screening mammogram for malignant neoplasm of breast?Imaging: MM Digital Mammo Screening Notes: REGULAR MAMMOGRAMS AND SBE'S WERE RECOMMENDED.??3.?Female infertility associated with anovulation? Notes: CONTINUE CARE WITH DR HOWELL. OBTAIN RECORDS FROM HER OFFICE. CONTINUE VITAMINS.?? * Labs:? * ?Lab: Test, Ur ine * Procedure Codes:? * Preventive Medicine:? ??YOUR PREVENTIVE WELLNESS PLAN:?Osteoporosis prevention?Calcium, D, strength training.?Breast Cancer Screening (Mammogram):?annually.?Cervical Cancer Screening (Pap Smear):?q 3 years with HPV screen.?Colorectal Cancer Screening:?q 10 years.? * Follow Up:?1 Year * Images: Billing Information: * Visit Code:? 11042 Preventive Care New Pt. Age 40-64. 75011 Preventive Care Est Pt. Age 40-64. * Procedure Codes:? * Sign off status: Completed true * Appointment Provider:?Eunice Stone M.D. Date:?02/12/2023 Generated for Yosef marcos/Lane/eTbricesmitting on:?08/07/2024 03:36 PM EST History and Physical Notes * HPI (History of Present Illness) Category Sub-Category Detail Notes Category Not es New/Follow-up Patient Consult PAT AND PARTNER ARE GOING TO START IVF TREATMENTS THIS FEB. THEY ARE UNDER THE CARE OF DR GARZON, INFERTILITY SPECIALIST AT [facility] [place]. SHE IS HAPPY WITH CARE. PAT AND PARTNER JUST GOT 2 WEEKS AGO. THEY HAVE BEEN TOGETHER FOR YEARS. HER LAST MAMMOGRAM DONE IN DECEMBER 2017 SHOWED BREASTS ARE NOT DENSE AND WAS NORMAL. HER LAST PAP TEST IN 2021 WAS NEGATIVE AND HPV NEGATIVE. Annual General Health Maintenance: Current breast complaints:: no breast pain, mass, discharge, or skin changes Urinary problems:: patient r eports no urinary health problems or bowel health problems Calcium intake:: takes adequ ate calcium via diet and supplementation Significant ELECTRONIC WARFARE OFFICER problems:: n o significant industrial renderer symptoms or problems Examination Category Sub-Category Detail Notes Category Not es General Exam CONSTITUTIONAL: General Appearan ce:: alert, in no acute distress, normal, well nourished NECK/THYROID: Inspection/Palpation:: normal Thyroid:: normal size and shape RESPIRATORY: Auscultation: clear to auscultation bilaterally, Respiratory Effort: normal CARDIOVASCULAR: Auscultation: regula r rate and rhythm GASTROINTESTINAL: Abdomen:: no masses, nontender , nondistended Liver and Spleen:: normal Hernias:: no hernias present, no inguina l adenopathy MUSCULOSKELETAL: Inspection/Palpation:: no clubb ing, cyanosis, or edema SKIN: Skin:: normal NEURO/PSYCH: Orientation:: time , place, pers on Mood/Affect:: normal BREAST, Right: Inspection/Palpation :: no discharge, no [...]
--- NOTE | 2024-08-07 15:43 | MHC.PC.OV ---
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, new patient visit Field Services Manager Required: No Is last menstrual period known: Yes Last menstrual period: 07/04/24 Post menopausal: No Patient : No Allergies No Known Allergies Allergy (Verified 08/07/24 15:45) Medication List - Last Reconciled 08/07/24 by Valente Hudson RN No Known Home Meds Dental Screening Dental Screen Date: 08/07/24 Did you have a dental visit in the last 12 months?: Yes Did you have a dental problem in the last 6 months where you did not have access to dental care?: No Was dental information given to patient?: No HPI HPI Comments History of Present Illness Details The patient is a 43 year old female with a past medical history of hyperlipidemia, chronic idiopathic urticaria, sebopsoriasis presenting to [facility]. Transferring from [facility] Hyperlipidemia: Monitoring. Due for labs Doing IVF initially through [facility] now [place]. needs referral History of psoriasis, urticaria-followed with [facility]. Needs dermatology referral -psoriasis and multiple nevi Mammo 03/2024 ROS CONSTITUTIONAL: Denies weight loss, fever and chills. HEENT: Denies changes in vision and hearing. RESPIRATORY: Denies SOB and cough. CV: Denies palpitations and CP GI: Denies abdominal pain, nausea, vomiting and diarrhea. : Denies dysuria and urinary frequency. MSK: Denies new myalgia and joint pain. SKIN: Denies rash and pruritus. NEUROLOGICAL: Denies headache PSYCHIATRIC: Denies recent changes in mood. PHYSICAL EXAM: GENERAL: Alert and oriented x 3. NAD EYES: EOMI. Anicteric. HENT: Moist mucous membranes. No scleral icterus. No cervical lymphadenopathy. LUNGS: Clear to auscultation bilaterally. CARDIOVASCULAR: Regular rate and rhythm. No murmur. No JVD. ABDOMEN: Soft, non-tender +bs EXTREMITIES: No edema. Non-tender. SKIN: No rashes or lesions. Warm. NEUROLOGIC: No focal neurological deficits. CN II-XII grossly intact PSYCHIATRIC: Cooperative. Appropriate mood and affect [facility] Family History Sister No problems noted. 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 1. Little interest or pleasure in doing things: not at all 2. Feeling down, depressed, or hopeless: not at all 3. Trouble falling or staying asleep, or sleeping too much: not at all 4. Feeling tired or having little energy: more than half the days 5. Poor appetite or overeating: several days 6. Feeling bad about yourself - or that you are a failure or have let yourself or your family down: not at all 7. Trouble concentrating on things, such as reading the newspaper or watching television: not at all 8. Moving or speaking so slowly that other people could have noticed. Or the opposite - being so fidgety or restless that you have been moving around a lot more than usual: not at all 9. Thoughts that you would be better off or of hurting yourself in some way: not at all Total score: 3 Depression Screening Interpretation: Negative Depression Screening Done: Yes 43159 - PHQ-9 Billing: Yes Source: Developed by Drs. Yobani Grullon, Tara Moon, Fahad Tillman and colleagues, with an educational joe from [employer]. Thrive Questionnaire Date Thrive assessed: 08/04/24 I am a: Patient What is your living situation today?: I have a steady place to live Within the past 12 months, did the food you bought not last and you didn't have the money to get more?: Never true Within the past 12 months, did you worry whether your food would run out before you got money to buy more?: Never true Do you have trouble paying for medicines?: No Do you have trouble getting transportation to medical appointments?: No Do you have trouble paying your heating and electricity bill?: No Do you have trouble taking care of your child, family member or friend?: No Do you have trouble with day-to-day activities such as bathing, preparing meals, shopping, managing finances, etc.?: No Are you currently unemployed and looking for a job?: No Are you interested in more education?: No Please select the resources that you would like help with: None Currently or been in a relationship where the following occur: No concerns reported THRIVE Score: 0 AUDIT C Alcohol Use Questionnaire (AUDIT-C) 1. How often do you have a drink containing alcohol?: 2-4 times a month 2. How many drinks containing alcohol do you have on a typical day when you are drinking?: 1 or 2 3. How often do you have six or more drinks on one occasion?: Never Total Score: 2 Score Reviewed/Action Taken: No BRENT-7 AMB Questionnaire BRENT-7 Date BRENT - 7 assessed: 08/07/24 Feeling nervous, anxious, or on edge: 0 = Not at all Not being able to stop or control worryin = Not at all Worrying too much about different things: 1 = Several days Trouble relaxin = Several days Being so restless that it is hard to sit still: 0 = Not at all Becoming easily annoyed or irritable: 0 = Not at all Feeling afraid as if something awful might happen: 0 = Not at all Total BRENT-7 score (0-4 normal; 5-9 mild; 10-14 moderate; 15-21 severe): 2 Source: Developed by Drs. Yobani Grullon, Tara Moon, Fahad Tillman and colleagues, with an educational joe from [employer]. BRENT-7 Assessment Billing BRENT-7 Assessment Tool: BRENT-7 Assessment 28816 Physical exam (Primary Care) Vital Signs: Last Vital Signs Temp 98.0 F 08/07/24 15:57 Pulse 81 08/07/24 15:57 Resp 15 08/07/24 15:57 BP 124/68 08/07/24 15:57 Pulse Ox 98 08/07/24 15:57 Oxygen Delivery Method Room Air 08/07/24 15:57 BMI result Body Mass Index 44.3 Tobacco/Smoking Status: Tobacco use Status Patient Tobacco Use Status Never used Tobacco 08/07/24 16:06 e-Cigarette/Vaping Use Never Used 08/07/24 16:06 PHQ-9: PHQ-9 Score PHQ-9: Total score 3 08/07/24 16:24 Depression Screening Interpretation: Negative Thrive Assessment: Date of Thrive Assessment Date Thrive assessed 08/04/24 08/07/24 16:06 Currently or been in a relationship where the following occur: No concerns reported Coding Level of Care Code New Pt Level 4 (73135) Complex EM visit Add On G2211 Diagnoses Encounter to establish care Z76.89 Pure hypercholesterolemia E78.00 Hyperlipidemia type: pure hypercholesterolemia Additional Codes BRENT-7 Assessment Billing - BRENT-7 Assessment Tool: BRENT-7 Assessment 03736 ([id number]) PHQ-9 - 27844 - PHQ-9 Billing: Yes ([id number]) Assessment & Plan Assessment & Plan (1) Encounter to establish care: Code(s): Z76.89 - Persons encountering health services in other specified circumstances Category: Medical Plan: 43 year old female presenting to establish care. Past medical, surgical, social and family history reviewed. Meds reconciled. Labs ordered. Referrals placed (2) Hyperlipidemia: Code(s): E78.5 - Hyperlipidemia, unspecified Category: Medical Qualifiers: Hyperlipidemia type: pure hypercholesterolemia Qualified Code(s): E78.00 - Pure hypercholesterolemia, unspecified Plan: Monitor labs Orders: Orders TSH reflex Free T4 08/07/24 E78.5 - Hyperlipidemia, unspecified, Z13.228 - Encounter for screening for other metabolic disorders, Z76.89 - Persons encountering health services in other specified circumstances, Z83.49 - Family history of other endocrine, nutritional and metabolic diseases Hemoglobin A1c 08/07/24 E78.5 - Hyperlipidemia, unspecified, Z13.228 - Encounter for screening for other metabolic disorders, Z76.89 - Persons encountering health services in other specified circumstances, Z83.49 - Family history of other endocrine, nutritional and metabolic diseases Complete Blood Count Auto Diff 08/07/24 E78.5 - Hyperlipidemia, unspecified, Z13.228 - Encounter for screening for other metabolic disorders, Z76.89 - Persons encountering health services in other specified circumstances, Z83.49 - Family history of other endocrine, nutritional and metabolic diseases Comprehensive Met. Panel 08/07/24 E78.5 - Hyperlipidemia, unspecified, Z13.228 - Encounter for screening for other metabolic disorders, Z76.89 - Persons encountering health services in other specified circumstances, Z83.49 - Family history of other endocrine, nutritional and metabolic diseases Lipid Panel 08/07/24 E78.5 - Hyperlipidemia, unspecified, Z13.228 - Encounter for screening for other metabolic disorders, Z76.89 - Persons encountering health services in other specified circumstances, Z83.49 - Family history of other endocrine, nutritional and metabolic diseases Referrals Dermatology Referral D22.9 - Melanocytic nevi, unspecified Infertility Reproductive Referral (female) Z87.42 - Personal history of other diseases of the female genital tract Reproductive Endocrinology Z87.42 - Personal history of other diseases of the female genital tract
[2024-08-07 15:57] VITALS: BP 124/68; PULSE 81; RESP 15; TEMP 36.7; O2SAT 98; BMI 44.3
== END 2024-08-07 16:27 | disposition home or self-care (01) ==
PROVIDERS: PCP Internal Medicine; Visit Provider Internal Medicine
DX: Z76.89 Persons encountering health services in other specified circumstances (principal); E78.00 Pure hypercholesterolemia, unspecified

== ENCOUNTER → 2024-08-07 15:34 | Outpatient (BNVA) | payer BC, SELFPAY | PROVIDERS: PCP Internal Medicine; Visit Provider Internal Medicine | DX: Z76.89 Persons encountering health services in other specified circumstances (principal); E78.00 Pure hypercholesterolemia, unspecified; D22.9 Melanocytic nevi, unspecified; Z87.42 Personal history of other diseases of the female genital tract | CPT/HCPCS: 96127 ==

== ENCOUNTER 2024-08-10 14:24 | Outpatient (REF) | payer BC, SELFPAY ==
--- OUTSIDE RECORDS SUMMARY | 2024-08-10 15:39 | XMS_ITS | Encounter Summary ---
Author Organization [facility] Address [address] [place] [address] Care Team Providers Care Supervisor Food Checkers And Cashiers Name Role Phone Jg Hernandez MD Primary Care Provider Unavail able Juan Vázquez MD Primary Care Provider Unava ilable Stu Freitas DO Primary Care Provider Unavaila ble Encounter Details Date Type Department Care Team Description 02/28/2013 Release of Information Medical Records [address] [place] [address] Abstract, Provider Social History Tobacco Use Types [...] on filedocumented in this encounter Care Teams Supervisor Food Checkers And Cashiers Relationship Specialty Start Date End Date Jg Hernandez MD PCP - General Internal Medicine 02/10/13 07/12/19 Juan Vázquez MD PCP - General Internal Medicine 07/13/19 06/22/21 Stu Freitas DO PCP - General Internal Medicine 06/23/21 documented as of this encounter
--- OUTSIDE RECORDS SUMMARY | 2024-08-10 15:39 | XMS_ITS ---
Author Organization [facility] Address [address] [place] [address] Care Team Providers Care Data Analytics Analyst Name Role Phone Shanita CANDELARIO MD, CARLOS Primary Care Provider Eunice Crawley Unavailable [phone] Allergies No Known Allergies REASON FOR VISIT [...] 5 MG 1 tablet Orally q 4hrs-d1, t4lgg-l3, e1bgl-j2, then twice a day for 14 days [...] strategies discussed: Other Section Notes: Vital Signs Temperature 97.1 degrees Fahrenheit 06/17/20 Blood pressure systolic 124 mm Hg 06/17/20 23 Blood pressure diastolic 86 mm Hg 023 Height 62 in 06/17/2023 Weight 236 lbs 06/17/2023 BMI 43.16 kg/m2 06/17/2023 BP RETAKEN 06/17/23 2:25PM: 130/82 Encounters Encounter Location Date Provider Diagnosis [facility] [address] [place] [address] 06/17/2023 Eunice Richardsonva Other specified abnormal uterine [...] MG 1 tablet Orally q 4h rs-d1, g4udf-h3, i6aji-o2, then twice a day for 14 days [...] Provider Name:Eunice walter, 02/21/2025 03:00:00 PM, [address], [address], [place], [address], Progress Notes * VALDEZ PERRY:1980 (42 yo F)Acc No.[id number]:06/17/2023 PROGRESS NOTES Patient:ESTIVEN GUPTA Appointment Provider:?Eunice walter M.D. :1980???Age:42 Y???Sex:Female D ate:06/17/2023 Address:[address] [place] [address], [place] [address], , [id number] Pcp:OLY RIVERS, DO Subjective: * Chief Complaints: * ???Heavy bleeding over 1 1/2 wks with clots * HPI: ???New/Follow-up Patient Consult:? ADELFO HAS BEEN SEEING [facility]. IVF WAS STARTED IN MAR [...] TO BE FOLLOWED BY INFERTILITY MD AT [facility] [place] (DR [place]ARZON)BUT THEY HAVE CLOSED THE SECTION AND ARE NOW BEING COMBINED WITH IVF [place]. SHE WILL TRY TO REACH OUT TO DR GARZON. * ROS:?general:?no?chest pain.?no?palpitations.?no?headache.?no?cough.?no?shortness of breath.?no?fever.?no?unexplained weight loss.?no?nausea/vomiting.?no?change in bowel movements.?no blood in stool.?genitourinary complaints?yes,?VAGINAL BLEEDING.?no?skin complaints.? * Medical History:? * Bottle Blower History:?/ Para?0/0.?Sexual activity?currently sexually active.?Last Pap Smear:?01/28/22 NIL, NEG HPV, 01/06/19 NIL, Neg HPV, 01/03/18 No Interpretation Possible, NEG HRHPV, 07/2015 , neg, NEG HRHPV.?Mammogram:?02/18/23 < 50% density, 12/30/21 Lanette Carter, 01/04/18 Baseline, < 50% density.?LMP and menses?06/06/23, [...] Stone M.D. Date:?06/17/2023 Generated for Yosef marcos/Lane/eTransmitting on:?08/10/2024 03:39 PM EST History and Physical Notes * HPI (History of Present Illness) Category Sub-Category Detail Notes Category Not es New/Follow-up Patient Consult ADELFO HAS BEEN SEEING [facility]. IVF WAS STARTED IN MAR [...] TO BE FOLLOWED BY INFERTILITY MD AT [facility] (DR GARZON)BUT THEY HAVE CLOSED THE SECTION AND ARE NOW BEING COMBINED WITH IVF [place]. SHE WILL TRY TO REACH OUT TO [...]
--- OUTSIDE RECORDS SUMMARY | 2024-08-10 15:40 | XMS_ITS | Encounter Summary ---
Author Organization [facility] Address [address] [place] [address] Care Team Providers Care Knife Setter Name Role Phone Stu Freitas DO Primary Care Provider Alisa grullon Encounter Details Date Type Department Care Team Description 12/25/2022 Pt. Referral Request [facility] [address] [place] [address] Md Linda Social History Tobacco Use Types [...] on filedocumented in this encounter Care Teams Knife Setter Relationship Specialty Start Date End Date Stu Freitas DO PCP - General Internal Medicine 06/23/21 documented as of this encounter
--- OUTSIDE RECORDS SUMMARY | 2024-08-10 15:40 | XMS_ITS | Encounter Summary ---
Author Organization [facility] Address [address] [place] [address] Care Team Providers Care Mainframe Software Developer Name Role Phone Juan Vázquez MD Primary Care Provider Unava ilStu Saucedo DO Primary Care Provider Tka ble Encounter Details Date Type Department Care Team Description 07/21/2019 Release of Information Medical Records [address] [place] [id number] Abstract, Provider Social History Tobacco Use Types [...] on filedocumented in this encounter Care Teams Mainframe Software Developer Relationship Specialty Start Date End Date Juan Vázquez MD PCP - General Internal Medicine 07/13/19 06/22/21 Stu Freitas DO PCP - General Internal Medicine 06/23/21 documented as of this encounter
--- OUTSIDE RECORDS SUMMARY | 2024-08-10 15:40 | XMS_ITS ---
Author Organization [facility] Address [address] [place] [address] Care Team Providers Care Adoption Specialist Name Role Phone Shanita CANDELARIO MD, CARLOS Primary Care Provider Eunice Crawley Unavailable [phone] Allergies No Known Allergies Results Component Value Reference Range Notes Urinalysis Reviewed date:02/12/2023 03:06:10 PM Interpretation: Performing Lab: Notes/Report: PH 8.0 PROTEIN Neg GLUCOSE Neg BLOOD Neg REASON FOR VISIT Annual HOSPITAL PHARMACIST Physical, Annual HOSPITAL PHARMACIST Physical 40-49 Medications Medication SIG (Take, Route, [...] Status W/U Status Risk Notes Problem Amenorrhea (27101213) Amenorrhea, unspecified (N91.2) Active confirmed Problem Female infertility associated with anovulation (127402708) Female infertility associated with anovulation (N97.0) Active confirmed Vital Signs Temperature 97.7 degrees Fahrenheit 02/13/20 23 Blood pressure systolic 130 mm Hg 02/13/20 23 Blood pressure diastolic 84 mm Hg 023 Height 62 in 02/12/2023 Weight 243 lbs 02/12/2023 BMI 44.44 kg/m2 02/12/2023 Encounters Encounter Location Date Provider Diagnosis [facility] [address] [place] [address] 02/12/2023 Eunice Stone Encounter for gynecological examination [...] Provider Name:Eunice walter, 02/21/2025 03:00:00 PM, [address], [address], [place], [address], Progress Notes * VALDEZ LAROSE: 2 (42 yo F)Acc No.[id number]:02/12/2023 PROGRESS NOTES Patient:?ESTIVEN LAROSE Appointment Provider:?Eunice walter M.D. :1980???Age:42 Y???Sex:Female D ate:02/12/2023 Address:[address] [place] [address], [place] [address], , [id number] Pcp:OLY RIVERS, DO Subjective: * Chief Complaints: * ???Annual HOSPITAL PHARMACIST PhysicalAnnual HOSPITAL PHARMACIST Physical 40-49 * HPI: ???New/Follow-up Patient Consult:? PAT AND PARTNER ARE GOING TO START IVF TREATMENTS THIS FEB. THEY ARE UNDER THE CARE OF DR GARZON, INFERT[place] SPECIALIST [place] [facility] [place] SHE IS HAPPY WITH CARE. ?PAT AND [...] adequate calcium via diet and supplementation ?Significant HOSPITAL PHARMACIST problems:?no significant etl manager symptoms or problems * ROS:?general:?no?chest pain.?no?palpitations.?no?headache.?no?cough.?no?shortness of breath.?no?fever.?no?unexplained weight loss.?no?nausea/vomiting.?no?change in bowel movements.?no blood in stool.?no?genitourinary complaints.?no?skin complaints.? * Medical History:? * Bender Hand History:?/ Para?0/0.?Sexual activity?currently sexually active.?Last Pap Smear:?01/28/22 [...] * Images: Billing Information: * Visit Code:? 09173 Preventive Care New Pt. Age 40-64. 96597 Preventive Care Est Pt. Age 40-64. * Procedure Codes:? * Sign off status: Completed true * Appointment Provider:?Eunice Stone M.D. Date:?02/12/2023 Generated for Yosef marcos/Lane/eTbricesmitting on:?08/10/2024 03:39 PM EST History and Physical Notes * HPI (History of Present Illness) Category Sub-Category Detail Notes Category Not es New/Follow-up Patient Consult PAT AND PARTNER ARE GOING TO START IVF TREATMENTS THIS FEB. THEY ARE UNDER THE CARE OF DR GARZON, INFERT[place] SPECIALIST [place] [facility] [place] SHE IS HAPPY WITH CARE. PAT AND [...] ate calcium via diet and supplementation Significant HOSPITAL PHARMACIST problems:: n o significant etl manager symptoms or problems Examination Category Sub-Category Detail [...]
--- OUTSIDE RECORDS SUMMARY | 2024-08-10 15:40 | XMS_ITS | Patient Health Record ---
Author Organization [facility] Address [address] [place] [address] Care Team Providers Care Dry Mill Worker Name Role Phone Shanita CANDELARIO MD, CARLOS Primary Care Provider Unavailab Eunice Villarreal Unavailable [phone] Allergies No Known Allergies Results Component Value Reference Range Notes Urinalysis Reviewed date:02/16/2024 03:32:26 PM Interpretation: Performing Lab: Notes/Report: PH 5.0 PROTEIN Neg GLUCOSE Neg BLOOD Neg [id number] IGP No Culture 30 Plus Reviewed date:02/23/2024 01:38:28 PM Interpretation: Performing Lab:[facility] [place], [address], [address], [place], Phone - [phone], Director - [facility] Notes/Report: Clinical Information:[id number] LMP / Prev Treat...DRE=[id number] Dates / Results....01/19/22 NIL, Neg HPV No. of containers..01 ThinPrep Vial DIAGNOSIS: NEGATIVE FOR INTRAEPITHELIAL LESION OR MALIGNANCY. THIS SPECIMEN WAS RESCREENED PART OF OUR ENLISTED AIRCREW/AERIAL OBSERVER/GUNNER PROGRAM. Specimen adequacy: Satisfactory for evaluation. Endocervical and/or squamous metaplastic cells (endocervical component) are present. Clinician provided ICD10: Z0 1.419 Performed by: Shannen teran, Pizza Baker (ASCP) QC reviewed by: Edwin dc, Pizza Baker (ASCP) . . Note: The Pap smear [...] date:02/23/2024 01:38:11 PM Interpretation: Performing Lab:[facility] [place], [address], [address], [place], Phone - [phone], Director - [facility] Notes/Report: Clinical Information:[id number] LMP / Prev Treat...PLS=[id number] Dates / Results....01/19/22 NIL, Neg HPV No. [...] Status Risk Notes Problem Morbid obesity (disorder) (207001185) Morbid (severe) obesity due to excess calories (E66.01) Active confirmed Problem Amenorrhea (74161286) Amenorrhea, unspecified (N91.2) Active confirmed Problem Irregular Menstruation (12858003) Other specified irregular menstruation (N92.5) Active confirmed Problem Abnormal vaginal bleeding (870291750) Other specified abnormal uterine and vaginal bleeding (N93.8) Active confirmed Problem Female infertility associated with anovulation (175426714) Female infertility associated with anovulation (N97.0) Active confirmed Problem Female infertility (2560612) Female infertility, unspecified (N97.9) Active confirmed Problem Obesity (027462639) Obesity, unspecified (278.00) Active confirmed Major Vital Signs Temperature 97.7 degrees Fahrenheit 02/16/2024 Blood pressure diastolic 84 mm Hg 02/16/2024 Height 62 in 02/16/2024 Blood pressure systolic 128 mm Hg 02/16/2024 Weight 240 lbs 02/16/2024 BMI 43.89 kg/m2 02/16/2024 Encounters Encounter Location Date Provider Diagnosis [address] [address] 02/16/2024 Eunice Stone Encounter for gynecological examination [...] unspecified (ICD-10 - N97.9) CONTINUE CARE WITH [facility]. Plan Of Treatment Pending Test Test Name Order Date Test, Urine 02/12/2023 Test, Urine 06/17/2023 DIAGNOSTIC MAMMOGRAM, BILATERAL 12/24/19 18 COMPLETE BLOOD COUNT 06/17/2023 HCG PLUS BETA 06/17/2023 THIN PREP,HPV,ALISIA IF HPV+/CYT-,CT/GC(>2 9YR)(SCRN) 01/03/2018 MM Digital Mammo Screening 01/28/2022 MM Digital Mammo Screening 02/12/2023 [facility] Digital Mammo Screening 02/16/2024 Left Breast Ultrasound 12/23/2017 Next Appt Details Provider Name:Eunice walter, 02/21/2025 03:00:00 PM, [address], [address], [place], [address], Insurance Providers Payer Name Payer Address Payer Phone Subscriber Number Group Number Insured Name Patient Relationship to Insured Coverage Start Date Coverage End Date [employer] [place] [address] [place] [address] [phone] [id number] ESTIVEN PERRY Self - patient is the [...]
--- OUTSIDE RECORDS SUMMARY | 2024-08-10 15:40 | XMS_ITS ---
Author Organization [employer] [facility] Address [address] [place] [address] Care Team Providers Care Copper Miner Name Role Phone Shanita CANDELARIO MD, CARLOS Primary Care Provider Unavailab Eunice Villarreal Unavailable [phone] Allergies No Known Allergies Results Component Value Reference Range Notes Urinalysis Reviewed date:02/16/2024 03:32:26 PM Interpretation: Performing Lab: Notes/Report: PH 5.0 PROTEIN Neg GLUCOSE Neg BLOOD Neg [id number] IGP No Culture 30 Plus Reviewed date:02/23/2024 01:38:28 PM Interpretation: Performing Lab:[facility], [address], [address], [place], Phone - [phone], Director - [facility] Notes/Report: Clinical Information:[id number] LMP / Prev Treat...GSM=[id number] Dates / Results....01/19/22 NIL, Neg HPV No. of containers..01 ThinPrep Vial DIAGNOSIS: NEGATIVE FOR INTRAEPITHELIAL LESION OR MALIGNANCY. THIS SPECIMEN WAS RESCREENED PART OF OUR MANAGER HEAVY EQUIPMENT PROGRAM. Specimen adequacy: Satisfactory for evaluation. Endocervical and/or squamous metaplastic cells (endocervical component) are present. Clinician provided ICD10: Z0 1.419 Performed by: Shannen teran, Radiography Technician (ASCP) QC reviewed by: Edwin dc, Radiography Technician (ASCP) . . Note: The Pap smear [...] Performing Lab:[facility], [address], [address], [place], Phone - [phone], Director - [facility] Notes/Report: Clinical Information:[id number] LMP / Prev Treat...BSA=[id number] Dates / Results....01/19/22 NIL, Neg HPV No. of containers..01 ThinPrep Vial REASON FOR VISIT Annual OUTSIDE B2B SALES Physical, Annual OUTSIDE B2B SALES Physical 40-49 Medications Medication SIG (Take, Route, [...] W/U Status Risk Notes Problem Female infertility (4324559) Female infertility, unspecified (N97.9) Active confirmed Vital Signs Temperature 97.7 degrees Fahrenheit 02/16/20 24 Blood pressure systolic 128 mm Hg 02/16/20 24 Blood pressure diastolic 84 mm Hg 024 Height 62 in 02/16/2024 Weight 240 lbs 02/16/2024 BMI 43.89 kg/m2 02/16/2024 Encounters Encounter Location Date Provider Diagnosis Total [facility] [address] [place] [address] 02/16/2024 Eunice Stone Encounter for gynecological examination [...] (ICD-10 - N97.9) CONTINUE CARE WITH [facility]. Plan Of Treatment Treatment Notes Assessment Notes Encounter for gynecological examination (general) (routine) without abnormal findings PAP TEST WITH HPV TYPING WAS OBTAINED. Encounter for screening mamm ogram for malignant neoplasm of breast REGULAR MAMMOGRAMS AND SBE'S WERE RECOMMENDED. Female infertility, unspecified CONTINUE CARE WITH [facility]. Pending Test Test Name Order Date MM Digital Mammo Screening 02/16/2024 Next Appt Details Follow Up: 1 Year, Reason: Provider Name:Eunice walter, 02/21/2025 03:00:00 PM, [address], [address], [place], [address], Progress Notes * ESTIVEN PERRYDOB:1980 (43 yo F)Acc No.[id number]:02/16/2024 PROGRESS NOTES Patient:?ESTIVEN PERRY Appointment Provider:?Eunice walter M.D. :1980???Age:43 Y???Sex:Female D ate:02/16/2024 Address:[address] [place], [place] [id number] Pcp:CARLOS CANDELARIO MD Subjective: * Chief Complaints: * ???Annual OUTSIDE B2B SALES PhysicalAnnual OUTSIDE B2B SALES Physical 40-49 * HPI: ???New/Follow-up Patient Consult:? ADELFO WAS SEEING [facility] SPECIAL[facility] [place] [facility] [place] AND WAS AN IVF PATIENT WHEN THIS WAS TURNED OVER TO [facility].? SHE HAD TO REPEAT MOST OF HER INFERTILITY WORK UP.? SHE IS NOW SEEING DR SONU BANSAL OF [facility] AND [facility]MENTS HAVE BEEN STARTED. HER LAST [...] adequate calcium via diet and supplementation ?Significant OUTSIDE B2B SALES problems:?no significant editing computer publisher symptoms or problems * ROS:?general:?no?chest pain.?no?palpitations.?no?headache.?no?cough.?no?shortness of breath.?no?fever.?no?unexplained weight loss.?no?nausea/vomiting.?no?change in bowel movements.?no blood in stool.?no?genitourinary complaints.?no?skin complaints.? * Medical History:? * Manager Dental History:?/ Para?0/0.?Sexual activity?currently sexually active.?Last Pap Smear:?01/28/22 [...] MG Tablet 1 tablet Orally q 4hrs-d1, x1wqm-w5, p6phc-s8, then twice a day for 14 days Medication List reviewed and reconciled with the patientDiscontinued iron 1 tab Oral Discontinued Apri 0.15-30 MG-MCG Tablet TAKE 1 TABLET BY MOUTH EVERY DAY (TAKE 21 DAY ACTIVE TABLETS THEN SKIP PLACEBOS & START NEXT PACK) Oral Discontinued Aygestin 5 MG Tablet 1 tablet Orally q 4hrs-d1, p6yvf-r7, a3odr-l8, then twice a day for 14 days [...] * Images: Billing Information: * Visit Code:? 98735 Preventive Care New Pt. Age 40-64. 76114 Preventive Care Est Pt. Age 40-64. * Procedure Codes:? * Sign off status: Completed true * Appointment Provider:?Eunice Stone M.D. Date:?02/16/2024 Generated for Yosef marcos/Lane/eTransmitting on:?08/10/2024 03:39 PM EST History and Physical Notes * HPI (History of Present Illness) Category Sub-Category Detail Notes Category Not es New/Follow-up Patient Consult PAT WAS SEEING [facility] SPECIAL[facility] [place] [facility] AND WAS AN IVF PATIENT WHEN THIS WAS TURNED OVER TO [facility]. SHE HAD TO REPEAT MOST OF HER INFERTILITY WORK UP. SHE IS NOW SEEING DR SONU BANSAL OF [facility] AND [facility] HAVE BEEN STARTED. HER LAST [...] ate calcium via diet and supplementation Significant OUTSIDE B2B SALES problems:: n o significant editing computer publisher symptoms or problems Examination Category Sub-Category Detail [...]
[2024-08-10 18:01] LABS: MANUAL DIFF FLAG NO
[2024-08-10 18:19] LABS: Basophils Percent Auto 0.5 % (0-2); Eosinophils Absolute Auto 0.2 X10*3/uL (0.0-0.4); Eosinophils Percent Auto 3.1 % (0-4); Hemoglobin 13.5 g/dl (12.0-16.0); Imm Gran Abs Auto 0.01 X10*3/uL (0.00-0.03); Imm Gran Pct Auto 0.2 % (0.0-0.4); Lymphocytes Percent Auto 33.7 % (20-40); Mean Corpuscular HGB Conc 32.9 g/dl (31.0-35.0); Mean Corpuscular Hemoglobin 29.2 pg (27.0-33.0); Mean Corpuscular Volume 88.7 fL (80.0-98.0); Mean Platelet Volume 10.1 fL (9.4-12.3); Monocytes Absolute Auto 0.4 X10*3/uL (0.1-1.2); Monocytes Percent Auto 6.6 % (2-11); Neutrophils Absolute Auto 3.4 x10*3/uL (2.0-8.3); Neutrophils Percent Auto 55.9 % (45-73); Platelet Count 247 X10*3/uL (160-400); Red Blood Count 4.62 X10*6/uL (4.20-5.50); Red Cell Distribution Width 12.6 % (11.0-16.0); White Blood Count 6.1 X10*3/uL (4.8-10.8)
[2024-08-10 18:22] LABS: Estimated Average Glucose 103 mg/dL; Hemoglobin A1C 114.9162 umol/L; Hemoglobin A1c % 5.2 % (<6.0); Total Hemoglobin (HGBA1C) 3452.8496 umol/L
[2024-08-10 18:42] LABS: Alanine Aminotransferase 21 U/L (0-31); Albumin Level 4.1 g/dL (3.5-5.0); Alkaline Phosphatase 78 U/L (39-117); Anion Gap 13 (12-20); Aspartate Amino Transferase 25 U/L (5-31); Bilirubin Total 0.8 mg/dL (0.0-1.0); Blood Urea Nitrogen 13 mg/dL (9-16); Calcium 9.1 mg/dL (8.4-10.2); Carbon Dioxide 23 mmol/L (22-29); Chloride 109 mmol/L (96-108); Cholesterol 201 mg/dL (<200); Estimated Glomerular Filt Rate > 60; Glucose Random 85 mg/dL (60-115); HDL Cholesterol 38 mg/dL (>40); LDL Cholesterol Calculated 142 mg/dL (<100); Potassium 3.9 mmol/L (3.3-5.1); Sodium 141 mmol/L (135-145); Total Protein 7.8 g/dL (6.5-8.0); Triglycerides 107 mg/dL (<150)
[2024-08-10 18:49] LABS: TSH reflex Free T4 1.43 uIU/mL (0.32-4.0)
== END 2024-08-10 14:25 | disposition home or self-care (01) ==
LOC: HO.WFDLDS 14:24
PROVIDERS: Visit Provider Internal Medicine
DX: Z76.89 Persons encountering health services in other specified circumstances (principal); E78.5 Hyperlipidemia, unspecified; Z13.228 Encounter for screening for other metabolic disorders; Z83.49 Family history of other endocrine, nutritional and metabolic diseases; Z13.1 Encounter for screening for diabetes mellitus
CPT/HCPCS: 36415; 80053; 80061; 83036; 84443; 85025

== ENCOUNTER 2025-04-23 13:39 | Outpatient (AMB) | payer BC, SELFPAY ==
--- NOTE | 2025-04-23 13:42 | MHC.PC.OV ---
Vital Signs 04/23/25 13:47 Height 5 ft 2 in Weight 249 lb 4 oz BMI 45.6 BP 128/64 Blood Pressure Location Rt brachial Position Sitting Respiration 14 Pulse 88 Pulse Source Pulse Oximeter Temp 97.9 F Temp Source Oral Pulse Oximetry (%) 98 Oxygen Delivery Method Room Air Intake Visit Reasons: ED Follow-up /[facility] /04-13 Intake Note: Emergency room follow up. 6-7 weeks . Project Administrative Assistant Required: No Allergies No Known Allergies Allergy (Verified 04/23/25 13:44) Tobacco use date assessed: 04/23/25 Dental Screening Dental Screen Date: 08/07/24 HPI HPI Comments History of Present Illness Details The patient is a 43 year old female with a past medical history of hyperlipidemia, chronic idiopathic urticaria, psoriasis, six weeks presenting for ER follow up Evaluated [facility] ER on Apr 12-Apr 13 for hypertension with reports on right ear tinnitus. Systolic at work was 170s. BP 140-179 systolic/80s-95 in ER. UA was concerning for UTI asymptomatic. Urine culture appears no growth. u/s c/w intrauterine . Mild elevation LFTs. Cefpodoxime sent. She feels better. Some mild residual tinnitus. Just purchased a BP cuff. BP today is good. [facility] seeing on Wednesday. She is currently on estradiol and progesterone through week 10 of Hyperlipidemia: Monitoring History of psoriasis, urticaria-followed with [facility]. Referred to dermatology Mammo 03/2024 ROS CONSTITUTIONAL: Denies weight loss, fever and chills. HEENT: Denies changes in vision and hearing. RESPIRATORY: Denies SOB and cough. CV: Denies palpitations and CP GI: Denies abdominal pain, nausea, vomiting and diarrhea. : Denies dysuria and urinary frequency. MSK: Denies new myalgia and joint pain. SKIN: Denies rash and pruritus. NEUROLOGICAL: Denies headache PSYCHIATRIC: Denies recent changes in mood. PHYSICAL EXAM: GENERAL: Alert and oriented x 3. NAD EYES: EOMI. Anicteric. HENT: Moist mucous membranes. No scleral icterus. No cervical lymphadenopathy. LUNGS: Clear to auscultation bilaterally. CARDIOVASCULAR: Regular rate and rhythm. No murmur. No JVD. ABDOMEN: Soft, non-tender +bs EXTREMITIES: No edema. Non-tender. SKIN: No rashes or lesions. Warm. NEUROLOGIC: No focal neurological deficits. CN II-XII grossly intact PSYCHIATRIC: Cooperative. Appropriate mood and affect [facility] Family History Sister No problems noted. 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 Current occupational exposures/hazards: No Cognitive needs: No Hearing needs: No Female Reproductive History Menstrual Age of Menarche: 12 Questionnaire Thrive Questionnaire Date Thrive assessed: 08/04/24 I am a: Patient What is your living situation today?: I have a steady place to live Within the past 12 months, did the food you bought not last and you didn't have the money to get more?: Never true Within the past 12 months, did you worry whether your food would run out before you got money to buy more?: Never true Do you have trouble paying for medicines?: No Do you have trouble getting transportation to medical appointments?: No Do you have trouble paying your heating and electricity bill?: No Do you have trouble taking care of your child, family member or friend?: No Do you have trouble with day-to-day activities such as bathing, preparing meals, shopping, managing finances, etc.?: No Are you currently unemployed and looking for a job?: No Are you interested in more education?: No Please select the resources that you would like help with: None Currently or been in a relationship where the following occur: No concerns reported THRIVE Score: 0 AUDIT C Alcohol Use Questionnaire (AUDIT-C) 1. How often do you have a drink containing alcohol?: Never Total Score: 0 BRENT-7 AMB Questionnaire BRENT-7 Date BRENT - 7 assessed: 08/07/24 Source: Developed by Drs. Yobani Grullon, Tara Moon, Fahad Tillman and colleagues, with an educational joe from [employer]. Physical exam (Primary Care) Vital Signs: Last Vital Signs Temp 97.9 F 04/23/25 13:47 Pulse 88 04/23/25 13:47 Resp 14 04/23/25 13:47 BP 128/64 11/03/25 13:47 Pulse Ox 98 04/23/25 13:47 Oxygen Delivery Method Room Air 04/23/25 13:47 BMI result Body Mass Index 45.6 Tobacco/Smoking Status: Tobacco use Status Tobacco use date assessed 04/23/25 04/23/25 13:51 Patient Tobacco Use Status Never used Tobacco 04/23/25 13:42 e-Cigarette/Vaping Use Never Used 04/23/25 13:42 Thrive Assessment: Date of Thrive Assessment Date Thrive assessed 08/04/24 04/23/25 13:42 Currently or been in a relationship where the following occur: No concerns reported Coding Level of Care Code Est Pt Level 4 (25385) Diagnoses Elevated blood pressure reading without diagnosis of hypertension R03.0 Less than 8 weeks gestation of Z3A.01 Weeks of gestation: less than 8 weeks Assessment & Plan Assessment & Plan (1) Elevated blood pressure reading without diagnosis of hypertension: Code(s): R03.0 - Elevated blood-pressure reading, without diagnosis of hypertension Category: Medical (2) : Code(s): Z34.90 - Encounter for supervision of normal , unspecified, unspecified trimester Category: Medical Qualifiers: Weeks of gestation: less than 8 weeks Qualified Code(s): Z3A.01 - Less than 8 weeks gestation of Plan 44 year old female for ER follow up ER course reviewed. Blood pressure is good today. Continue monitoring at home Discussed upcoming IVF visit. She needs to know if she needs external decision science analyst, MFM etc.
[2025-04-23 13:47] VITALS: BP 128/64; PULSE 88; RESP 14; TEMP 36.6; O2SAT 98; BMI 45.6
== END 2025-04-23 14:07 | disposition home or self-care (01) ==
LOC: HO.HMCFM 13:40
PROVIDERS: PCP Internal Medicine; Visit Provider Internal Medicine
DX: R03.0 Elevated blood-pressure reading, without diagnosis of hypertension (principal); Z3A.01 Less than 8 weeks gestation of pregnancy

== ENCOUNTER 2025-05-07 15:41 | Outpatient (AMB) | payer BC, SELFPAY ==
--- NOTE | 2025-05-07 15:53 | MHC.PC.OV ---
Vital Signs 05/07/25 15:57 Height 5 ft 2 in Weight 248 lb 4 oz BMI 45.4 BP 136/72 Blood Pressure Location Rt brachial Position Sitting Respiration 14 Pulse 81 Pulse Source Pulse Oximeter Temp 98.8 F Temp Source Oral Pulse Oximetry (%) 98 Oxygen Delivery Method Room Air Intake Visit Reasons: cpe Intake Note: Physical Plaster Caster Required: No Allergies No Known Allergies Allergy (Verified 05/07/25 15:59) Tobacco use date assessed: 04/23/25 Dental Screening Dental Screen Date: 08/07/24 HPI HPI Comments History of Present Illness Details The patient is a 44 year old female with a past medical history of hyperlipidemia, chronic idiopathic urticaria, psoriasis, 9 weeks 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 Systolic at work was 170s. BP 140-179 systolic/80s-95 in ER. UA was concerning for UTI asymptomatic. Urine culture appears no growth. u/s c/w intrauterine . Mild elevation LFTs. Cefpodoxime sent. She feels better. Some mild residual tinnitus. Just purchased a BP cuff. BP today is good. [place] [facility] seeing on Wednesday. She will continue estradiol and progesterone through week 10 of . She has manager administrative booked for May 28 telehealth. Jun 12 first in person. She went for 7th week ultrasound. Everything was reassuring Hyperlipidemia: Monitoring History of psoriasis, urticaria-followed with [facility] dermatology Mammo 03/2024 Received flu shot in February CONSTITUTIONAL: Denies weight loss, fever and chills. HEENT: Denies changes in vision and hearing. RESPIRATORY: Denies SOB and cough. CV: Denies palpitations and CP GI: Denies abdominal pain, nausea, vomiting and diarrhea. : Denies dysuria and urinary frequency. MSK: Denies new myalgia and joint pain. SKIN: Denies rash and pruritus. NEUROLOGICAL: Denies headache PSYCHIATRIC: Denies recent changes in mood. PHYSICAL EXAM: GENERAL: Alert and oriented x 3. NAD EYES: EOMI. Anicteric. HENT: Moist mucous membranes. No scleral icterus. No cervical lymphadenopathy. LUNGS: Clear to auscultation bilaterally. CARDIOVASCULAR: Regular rate and rhythm. No murmur. No JVD. ABDOMEN: Soft, non-tender +bs EXTREMITIES: No edema. Non-tender. SKIN: No rashes or lesions. Warm. NEUROLOGIC: No focal neurological deficits. CN II-XII grossly intact PSYCHIATRIC: Cooperative. Appropriate mood and affect [facility] Family History Sister No problems noted. 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 Current occupational exposures/hazards: No Cognitive needs: No Hearing needs: No Vision needs: No Female Reproductive History Menstrual Age of Menarche: 12 Questionnaire Thrive Questionnaire Date Thrive assessed: 08/04/24 I am a: Patient What is your living situation today?: I have a steady place to live Within the past 12 months, did the food you bought not last and you didn't have the money to get more?: Never true Within the past 12 months, did you worry whether your food would run out before you got money to buy more?: Never true Do you have trouble paying for medicines?: No Do you have trouble getting transportation to medical appointments?: No Do you have trouble paying your heating and electricity bill?: No Do you have trouble taking care of your child, family member or friend?: No Do you have trouble with day-to-day activities such as bathing, preparing meals, shopping, managing finances, etc.?: No Are you currently unemployed and looking for a job?: No Are you interested in more education?: No Please select the resources that you would like help with: None Currently or been in a relationship where the following occur: No concerns reported THRIVE Score: 0 BRENT-7 AMB Questionnaire BRENT-7 Date BRENT - 7 assessed: 08/07/24 Source: Developed by Drs. Yobani Grullon, Tara Moon, Fahad Tillman and colleagues, with an educational joe from [employer]. Physical exam (Primary Care) Vital Signs: Last Vital Signs Temp 98.8 F 05/07/25 15:57 Pulse 81 05/07/25 15:57 Resp 14 05/07/25 15:57 BP 136/72 05/07/25 15:57 Pulse Ox 98 05/07/25 15:57 Oxygen Delivery Method Room Air 05/07/25 15:57 BMI result Body Mass Index 45.4 Tobacco/Smoking Status: Tobacco use Status Tobacco use date assessed 04/23/25 05/07/25 15:56 Patient Tobacco Use Status Never used Tobacco 05/07/25 15:56 e-Cigarette/Vaping Use Never Used 05/07/25 15:56 Thrive Assessment: Date of Thrive Assessment Date Thrive assessed 08/04/24 05/07/25 15:56 Currently or been in a relationship where the following occur: No concerns reported Coding Level of Care Code Est Pt Prev Care 40-64y(54863) Diagnoses Physical exam Z00.00 Family history of thyroid disorder Z83.49 Screening for metabolic disorder Z13.228 Assessment & Plan Assessment & Plan (1) Physical exam: Code(s): Z00.00 - Encounter for general adult medical examination without abnormal findings (2) Family history of thyroid disorder: Code(s): Z83.49 - Family history of other endocrine, nutritional and metabolic diseases Category: Medical (3) Screening for metabolic disorder: Code(s): Z13.228 - Encounter for screening for other metabolic disorders Category: Medical Plan 44 year old for CPE Interval history reviewed Preventive measures for age discussed Cannot undergo mammogram during -defer Upcoming manager administrative visit for Received flu shot. Will get Td with manager administrative
[2025-05-07 15:57] VITALS: BP 136/72; PULSE 81; RESP 14; TEMP 37.1; O2SAT 98; BMI 45.4
== END 2025-05-07 16:33 | disposition home or self-care (01) ==
LOC: HO.HMCFM 15:41
PROVIDERS: PCP Internal Medicine; Visit Provider Internal Medicine
DX: Z00.00 Encounter for general adult medical examination without abnormal findings (principal); Z83.49 Family history of other endocrine, nutritional and metabolic diseases; Z13.228 Encounter for screening for other metabolic disorders